=== PATIENT | female | born 1990 | race Caucasian/White ===

== ENCOUNTER 2017-04-29 05:47 | Inpatient (IN) | payer OTHER ==
[~2017-04-29] VITALS: Ht 165.1 cm; Wt 72.0 kg
[~2017-04-29 05:47] MED LIST: MTR/400 PO
[2017-04-29] MEDS ORDERED: PRENTAB26 PO (06:08)
[2017-04-29 06:09] VITALS: Ht 165.1 cm; Wt 72.0 kg
[2017-04-29] MEDS ORDERED: LACTATED RINGER'S 1000ML 1,000 ML IV SCH (06:33)
--- NOTE | 2017-04-29 06:44 | Progress Note ---
Progress Note Date of Service Apr 29, 2017. Progress Note Admit Note 26 F P0000 at 40.2 admitted in active labor with cervix 4-5 cm. GBS is negative. FHT Cat 1. Will admit in labor. anticipate normal delivery.
[2017-04-29 07:03] LABS: HEMATOCRIT 38.1 % (37-47); MEAN CELL VOLUME 90.5 fL (80-100); MEAN CORPUSCULAR HEMOGLOBIN 30.6 pg (25-34); MEAN CORPUSCULAR HGB CONC 33.9 g/dl (32-36); MEAN PLATELET VOLUME 10.6 fL (7.4-10.4); PLATELET COUNT 161 K/uL (130-400); RED BLOOD COUNT 4.21 M/uL (4.2-5.4); WHITE BLOOD COUNT 10.61 K/uL (4.8-10.8)
[2017-04-29] MEDS ORDERED: OXYTOCIN 30 UNITS/500ML NSS IV ONE (17:09)
[2017-04-29] MEDS ORDERED: ACETAMINOPHEN 325 MG TAB PO PRN (19:15)
[2017-04-29] MEDS ORDERED: HYDROCORTISONE ACETATE 25 MG SUPP PR PRN (19:15)
[2017-04-29] MEDS ORDERED: OXYCODONE/ACETAMINOPHEN 5-325 TAB PO PRN (19:15)
[2017-04-29] MEDS ORDERED: DIPHTHERIA/TETANUS/PERTUSSIS 0.5 ML SYR/VIAL IM. ONE (19:15)
[2017-04-29] MEDS ORDERED: OXYTOCIN 30 UNITS/500ML NSS IV PRN (19:15)
[2017-04-29] MEDS ORDERED: LANOLIN OINT EXT PRN ×2 (19:15)
[2017-04-29] MEDS ORDERED: SUPERCREAM 0.870 % 15GM JAR EXT PRN (19:15)
[2017-04-29] MEDS ORDERED: ACETAMINOPHEN/CODEINE 300/30MG TAB PO PRN ×2 (19:15)
--- NOTE | 2017-04-29 19:32 | DELIVERY SUMMARY ---
DATE OF OPERATION: 04/29/2017 TIME OF DELIVERY: 1821 DELIVERY OF PLACENTA: 182 DELIVERY NOTE: The patient is a 26-year-old 1 para 0 at 40 weeks and 2 days gestation who was admitted to labor and delivery on the morning of April 29, 2017, in active labor. She did not receive an epidural for anesthesia and she progressed spontaneously on her own. She reached complete dilation with the urge to push. She pushed to delivery at 1822. She delivered a viable female infant in the right occiput anterior position to an intact perineum. The baby was delivered and placed on the patient's abdomen. Cord was clamped x2 and cut. Apgars were 8 at 1 minute and 9 at 5 minutes. Please see nursing notes for further baby assessment. Cord blood was then obtained and an intact placenta with a 3-vessel cord was delivered manually at 1824. Oxytocin infusion was then began. The lower uterine segment and vagina was cleared of any blood clots and debris. Exploration of the perineum noted bilateral periurethral lacerations and a first degree vaginal laceration. All three were repaired with 3-0 and 4-0 Vicryl suture in a continuous running fashion. Excellent hemostasis was noted. No other lacerations were seen. All sponge, instrument and needle counts were found to be correct x2. Estimated blood loss was 300 cc. Both patient and baby tolerated the delivery well and were in recovery with stable vital signs. I attest to the content of the Intraoperative Record and any orders documented therein. Any exception s are noted below.
[2017-04-29] MEDS: DOCUSATE SODIUM 100 MG CAP PO SCH (20:05)
[2017-04-29] MEDS: IBUPROFEN 600 MG TAB PO PRN (20:05)
[2017-04-29 21:15] VITALS: BP 122/74; PULSE 100; TEMP 36.6
[2017-04-29] MEDS: BENZOCAINE 20% AER SPR 82.5 GM CAN EXT PRN (23:29)
[2017-04-30] VITALS: BP 107/69; PULSE 90; TEMP 36.6
[2017-04-30 03:45] VITALS: BP 101/59; PULSE 77; TEMP 36.7
[2017-04-30 08:22] LABS: HEMATOCRIT 35.3 % (37-47)
[2017-04-30 08:30] VITALS: BP 118/67; PULSE 90; TEMP 36.5; O2SAT 98
--- NOTE | 2017-04-30 09:13 | OB/GYN Progress Note ---
INSULATION CUPOLA CHARGER Progress Note Date of Service Apr 30, 2017. Subjective conversation w/ patient, physical exam Ambulation: ambulating normally Voiding: no voiding problems Passing Gas: Yes Diet Tolerance: Regular Diet Lochia: Small Feeding Type: Breast Feeding Objective Vital Signs Date Time Temp Pulse Resp B/P (MAP) Pulse Ox O2 Delivery O2 Flow Rate FiO2 04/30/17 03:45 36.7 77 20 101/59 (73) 04/30/17 00:00 Room Air 04/30/17 00:00 36.6 90 18 107/69 (82) 04/29/17 21:15 Room Air 04/29/17 21:15 36.6 100 20 122/74 (90) Room Air Physical Exam General Appearance: WD/WN, NO APPARENT DISTRESS Abdomen: non tender, soft Fundus: Firm Incision Description: Clean, Dry & Intact Laboratory Results Last 24 Hours Test 04/30/17 07:44 Hemoglobin 11.9 g/dL Hematocrit 35.3 % Assessment and Plan Post- Day Number: 1 Continue Routine Care: tent d/c in AM
[2017-04-30] MEDS: FERROUS SULFATE 325 MG TAB PO SCH (09:51)
[2017-04-30] MEDS: PRENATAL VITAMIN TAB PO SCH (09:51)
[2017-04-30] MEDS: DOCUSATE SODIUM 100 MG CAP PO SCH ×2 (09:51→20:34)
[2017-04-30 11:30] VITALS: BP 106/73; PULSE 88; TEMP 36.6; O2SAT 100
[2017-04-30] MEDS: IBUPROFEN 600 MG TAB PO PRN ×3 (11:30→20:35)
[2017-04-30 15:30] VITALS: BP 102/68; PULSE 80; TEMP 36.9
[2017-04-30] MEDS ORDERED: BISACODYL 5 MG TABEC PO SCH (20:00)
[2017-05-01 00:05] VITALS: BP 109/70; PULSE 71; TEMP 36.5
[2017-05-01] MEDS ORDERED: BISACODYL 10 MG SUPP PR PRN (07:00)
--- NOTE | 2017-05-01 07:00 | OB/GYN Progress Note ---
TALENT DEVELOPMENT MANAGER Progress Note Date of Service May 01, 2017. Subjective conversation w/ patient, physical exam Ambulation: ambulating normally Voiding: no voiding problems Passing Gas: Yes Diet Tolerance: Regular Diet Lochia: Moderate Feeding Type: Breast Feeding Review of Systems Constitutional: No fever, No chills, No sweats, No weight loss, No weakness, No fatigue, No problem reported Respiratory: No cough, No sputum, No wheezing, No shortness of breath, No dyspnea on exertion, No dyspnea at rest, No hemoptysis, No problem reported Cardiac: No chest pain, No orthopnea, No PND, No edema, No claudication, No palpitations, No problem reported Breast: No see HPI, No breast lump, No change in shape, No nipple discharge, No breast pain, No problem reported Abdomen: No pain, No nausea, No vomiting, No diarrhea, No constipation, No GI bleeding, No problem reported Female : No see HPI, No dysuria, No urinary frequency, No hematuria, No incontinence, No abnormal vaginal bleeding, No vaginal discharge, No problem reported Objective Vital Signs Date Time Temp Pulse Resp B/P (MAP) Pulse Ox O2 Delivery O2 Flow Rate FiO2 05/01/17 00:05 Room Air 05/01/17 00:05 36.5 71 18 109/70 (83) Room Air 04/30/17 15:30 36.9 80 18 102/68 (79) Room Air 04/30/17 15:30 Room Air 04/30/17 11:30 36.6 88 18 106/73 (84) 100 Room Air 04/30/17 08:30 98 Room Air 04/30/17 08:30 36.5 90 18 118/67 (84) 98 Physical Exam General Appearance: WELL-APPEARING, WD/WN, NO APPARENT DISTRESS, uncomfortable Respiratory/Chest: chest non-tender, lungs clear, normal breath sounds, no respiratory distress, no accessory muscle use Cardiovascular: regular rate, rhythm, no edema, no gallop, no JVD, no murmur Abdomen: normal bowel sounds, non tender, soft, no organomegaly, no pulsatile mass Fundus: Firm Incision Description: Clean, Dry & Intact Extremities: normal range of motion, non-tender, normal inspection, no pedal edema, no calf tenderness Laboratory Results Last 24 Hours Test 04/30/17 07:44 05/01/17 06:38 Hemoglobin 11.9 g/dL Hematocrit 35.3 % Assessment and Plan Post- Day Number: 2 Continue Routine Care: PPD #2 pt doing well D/c home with instructions
[2017-05-01] MEDS ORDERED: MTR600X PO (07:01)
--- NOTE | 2017-05-01 07:02 | Discharge Instructions ---
Discharge Instructions Date of Service May 01, 2017. Admission Reason for Admission: Term In Labor Discharge Discharge Diagnosis / Problem: Discharge Goals Goal(s): Routine recovery after delivery Activity Recommendations Activity Limitations: resume your previous activity . Instructions / Follow-Up Instructions / Follow-Up ACTIVITY RECOMMENDATIONS: * Gradual return to full activity over the next 2-3 weeks. * No lifting - nothing heavier than baby over the next 2-3 weeks. * Do not engage in vigorous exercise, sexual activity or sports until cleared by your physician. * Do not drive or operate any motorized equipment until cleared by your physician. * You may shower/bathe daily. BREAST CARE: If you are not breast feeding: * Wear a supportive bra 24 hours a day for one to two weeks. * Avoid stimulating your breasts and nipples as much as possible during the first few weeks after delivery. * When taking a shower, have the warm water hit your back, not breasts. * When your breasts feel full, apply ice packs. Usually three to four times a day helps ease the discomfort. * Take a mild pain medication (Tylenol/Motrin) when you are uncomfortable. If breast feeding: * Use breast milk to lubricate nipples. Lansinoh cream may be used for sore nipples. You do not need to remove cream prior to breast feeding. If using a different brand of cream, check the label for directions regarding removal of cream prior to nursing. * Wear a supportive bra. * If having problems with breasts or breast feeding, call a neuropsychology medical consultant or your health care provider. EPISIOTOMY CARE: After delivery, if you have an episiotomy (stitches), the following steps will ease discomfort and aid healing. * For the first 24 hours after delivery, place ice packs next to your episiotomy to help reduce swelling. * After the first 24 hour-period, sitz baths, either portable or in the tub, are suggested. A shower with a shower arm sprayed over the episiotomy may be comforting. * Anjelica care should be done after each voiding and bowel movement. Squirt warm water from a plastic bottle over the perineum (region of the body between the anus and urinary opening) and pat dry. * Use Dermoplast to ease discomfort. Shake container. [place] directly over the episiotomy. * Place a Tucks on a clean sanitary pad next to your episiotomy. OVER THE COUNTER MEDICATION: * For discomfort or pain, you may use Acetaminophen (Tylenol), Ibuprofen (Advil ), or Naproxen (Aleve) following the package directions. * For constipation you may use Colace following the package directions. SPECIAL CARE INSTRUCTIONS: When you are discharged from the hospital, it is important for you to follow the instructions listed below: * During the first week at home, you should be able to care for yourself and your baby. In addition, the usual light household activities are encouraged. * Limit your activities to the way you feel. Do not try to clean the house or move furniture. Be sensible. * If you actively engage in sports and have done so up until the time of your delivery, you may resume these activities as soon as you feel able. This may take up to one month or even longer. Use good judgment. * Continue to take your vitamins for at least six weeks after the of your baby. * Your diet need not be limited unless you were on a special diet before your delivery. Breast-feeding mothers need around 2500 calories per day and at least 64-80 ounces of fluid per day (8 to 10 glasses). * You should eat foods from the four major food groups. Crash diets or fad diets are to be avoided. Eating lean meats, fresh fruits and vegetables, low-fat dairy products, high fiber foods and a regular exercise program, will help you get back to your pre- weight without putting your health at risk. * Constipation is sometimes a problem after delivery. Take a mild laxative as needed. If breast feeding, Milk of Magnesia is acceptable to use. You may use a suppository or Fleets enema if no episiotomy. * A daily shower or tub bath is suggested. Be sure to thoroughly and gently dry the perineum. * A bloody vaginal discharge will usually continue until around four weeks post . A small amount of bleeding may continue for as long as six weeks. Vaginal discharge changes from the bright red bleeding after delivery to pink then brownish and finally yellowish-pink before becoming white and disappearing. * Bleeding may increase with activity. Your first period may come in 4-8 weeks. If you are breast feeding, your period may be delayed even longer. * [place] (sex) can begin whenever both you and your partner feel comfortable and do not have any form of genital infection. It is recommended that you wait until after your return appointment and discuss with your physician. If you have questions, please talk to your health care practitioner. A condom should be used to prevent infection and . * Foreplay, gentle intercourse and lubrication is very important the first several times to prevent pain. A water-based lubricant such as K-Y jelly or Astroglide may be used. * Tampons may be used six weeks after delivery. * Douching should be avoided for 6 weeks after delivery. * If you have RH negative blood and your baby is RH positive, you will receive RHOGAM by injection prior to discharge. The nurse will give you a card to keep with you that has the date and place that you received RHOGAM after delivery. * During your care, you had a Rubella screen done to check for the presence of rubella antibodies in your blood. If your test was negative, you will receive a Rubella vaccine prior to discharge. This vaccine may cause a fever, soreness at the injection site and flu-like symptoms. If these symptoms persist, notify your health care practitioner. is not advised for three months after a Rubella vaccine. There is a higher chance of having a baby with defects if conceived within three months of getting the vaccine. * If you were discharged 24 hours from delivery or before 48 hours: Visiting nurses will come to your home 48 hours after discharge to assess you and your baby. The visiting nurse will meet with you while you are in the hospital to arrange a time and get directions to your home. * Verbalizes understanding of car seat law as reviewed with patient nursing. * Car Seat hand-out given and reviewed with patient by nursing. * Shaken baby information reviewed with patient by nursing. Call you doctor if: * Heavy bleeding (saturating several pads an hour) or passing clots the size of your fist. * A fever >101 degrees F (38.3 degrees C) on two occasions four hours apart and/or chills. * Unusual pain in the pelvic or vaginal areas. * "Baby Blues" lasting longer than two weeks. If you have any questions or concerns, call your health care practitioner at . FOLLOW-UP VISIT: * Please call the office at to schedule a 6 week examination. It is important you keep this appointment. * It is important for you to make arrangements for either yearly or twice yearly check-ups thereafter. Current Hospital Diet Patient's current hospital diet: Regular OB Diet Discharge Diet Recommended Diet: Regular Diet Pending Studies Studies pending at discharge: no Medical Emergencies . Who to Call and When: Medical Emergencies: If at any time you feel your situation is an emergency, please call 911 immediately. . Non-Emergent Contact Non-Emergency issues call your: Specialist . . "Provider Documentation" section prepared by Ethan Ramachandran. . VTE Core Measure Inpt VTE Proph given/why not?: Treatment not indicated
[2017-05-01 07:20] LABS: HEMATOCRIT 36.6 % (37-47); MEAN CORPUSCULAR HEMOGLOBIN 30.4 pg (25-34); MEAN CORPUSCULAR HGB CONC 33.1 g/dl (32-36); MEAN PLATELET VOLUME 10.2 fL (7.4-10.4); PLATELET COUNT 187 K/uL (130-400); RED BLOOD COUNT 3.98 M/uL (4.2-5.4); WHITE BLOOD COUNT 11.28 K/uL (4.8-10.8)
[2017-05-01] MEDS: DOCUSATE SODIUM 100 MG CAP PO SCH (07:52)
[2017-05-01] MEDS: PRENATAL VITAMIN TAB PO SCH (07:52)
[2017-05-01] MEDS: FERROUS SULFATE 325 MG TAB PO SCH (07:52)
[2017-05-01] MEDS: BENZOCAINE 20% AER SPR 82.5 GM CAN EXT PRN (07:52)
[2017-05-01 08:19] VITALS: BP 109/74; PULSE 79; TEMP 36.7
[2017-05-01 12:58] VITALS: BP_DIAS 74; PULSE 79; TEMP 36.7
== END 2017-05-01 13:15 | disposition home or self-care (01) | DRG 775 ==
LOC: C.OPB 05:47 → C.LD 05:50 → C.OPB 06:42 → C.OBG 21:21
PROVIDERS: ADMIT Obstetrics & Gynecology; ATTEND Obstetrics & Gynecology
PROC: 0UQMXZZ Repair Vulva, External Approach (ICD-10-PCS; principal; 2017-04-29)
PROC: 0HQ9XZZ Repair Perineum Skin, External Approach (ICD-10-PCS; principal; 2017-04-29)
PROC: 10E0XZZ Delivery of Products of Conception, External Approach (ICD-10-PCS; principal; 2017-04-29)
DX: O48.0 Post-term pregnancy (principal); O70.0 First degree perineal laceration during delivery; O71.82 Other specified trauma to perineum and vulva; Z37.0 Single live birth; Z3A.40 40 weeks gestation of pregnancy

== ENCOUNTER 2019-06-26 03:41 | Inpatient (IN) ==
[2019-06-26] MEDS ORDERED: OXYTOCIN 30 UNITS/500 ML BAG IV PRN ×2 (04:16→05:39)
[2019-06-26] MEDS ORDERED: LACTATED RINGER'S 1,000 ML IV PRN (04:16)
--- NOTE | 2019-06-26 04:40 | History & Physical Report ---
Date of Service June 26, 2019 Assessment & Plan (1) Uterine contractions at greater than 20 weeks of gestation: 29 yo at 40.2 wks, in active labor FHR reassuring GBS negative No medical problems Plan to admit, monitor, labs anticipate History of Present Illness Chief Complaint: Contractions Primary Care Provider: Theodore Jimenez MD Patient is a 29 yo at 40.2 wks, who started to feel cts around 9 pm last night and got closer and more painful after 1 am No LOF/VB +FM Her has been uncomplicated GBS negative She is found to be 8 cm and desires AROM, but declines Epidural for pain Allergies Allergy/AdvReac Type Severity Reaction Status Date / Time No Known Allergies Allergy Unverified 01/16/16 10:33 Home Medications Home Medications Medication Instructions Recorded Confirmed Type PNV cmb#[id number]-ferrous fumarate-FA 1 tab PO DAILY 06/26/19 06/26/19 History [] Patient History Social History Preferred Language: Bermudian Gasket Maker Required: No Beliefs That Will Affect Care: None marital status: Current Living Situation: Family Other Information That Helps Us Care for You: No Feels Safe at Home: Yes Safety Concerns: Feels Safe At This Time Smoking Status: Never smoker Hx Alcohol Use: No Hx Substance Use: No OB History FT , 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
[2019-06-26 04:43] LABS: Hematocrit (blood only) 42.3 % (37-47); Hemoglobin 14.8 g/dL (12.0-16.0); Mean Corpuscular Hemoglobin 33.6 pg (25-34); Mean Corpuscular Volume 95.9 fL (80-100); Mean Platelet Volume 11.4 fL (7.4-10.4); Platelet Count 148 K/uL (130-400); RDW Coefficient of Variation 12.9 % (11.5-14.5); RDW Standard Deviation 44.2 fL (36.4-46.3); Red Blood Count 4.41 M/uL (4.2-5.4); White Blood Count 10.72 K/uL (4.8-10.8)
[2019-06-26] MEDS ORDERED: bisacodyL 10 MG SUPP PR PRN (05:39)
[2019-06-26] MEDS ORDERED: IBUPROFEN 600 MG TAB PO PRN (05:39)
[2019-06-26] MEDS ORDERED: HYDROCORTISONE ACETATE 25 MG SUPP PR PRN (05:39)
[2019-06-26] MEDS ORDERED: MEASLES, MUMPS & RUBELLA VIRUS VIAL SQ ONE (05:39)
[2019-06-26] MEDS ORDERED: OXYCODONE/ACETAMINOPHEN 5mg/325mg TAB PO PRN (05:39)
[2019-06-26] MEDS ORDERED: DIPHTHERIA/TETANUS/PERTUSSIS 0.5 ML SYR/VIAL IM ONE (05:39)
[2019-06-26] MEDS ORDERED: SUPERCREAM 0.870% 15 GM JAR EXT PRN (05:39)
[2019-06-26] MEDS ORDERED: OXYTOCIN 20 UNITS in LACTATED RINGER'S 1,000 ML IV SCH (08:15)
[2019-06-26] MEDS: PRENATAL VITAMIN 1 TAB PO SCH (08:37)
[2019-06-26] MEDS: DOCUSATE SODIUM 100 MG CAP PO SCH ×2 (08:37→20:51)
[2019-06-26] MEDS: BENZOCAINE 20% AER SPR 82.5 GM CAN EXT PRN (09:14)
[2019-06-26] MEDS ORDERED: METHYLERGONOVINE MALEATE 0.2 MG/ML AMP ONE (09:35)
--- NOTE | 2019-06-26 09:52 | Delivery Summary ---
DATE OF OPERATION: 06/26/2019 DATE OF DELIVERY: 06/26/2019 TIME OF DELIVERY OF BABY: 04:57 a.m. TIME OF DELIVERY OF PLACENTA: 05:14 a.m. DETAILS OF DELIVERY: The patient was found to be fully dilated and desired to push. She pushed for only 3 contractions and delivered the head without difficulty. Shoulders were delivered with minimal traction. Baby was handed off to the mother where mouth and nose were suctioned. Cord was clamped x2 and cut 1 minute delay. It was 3 vessels cord. Then the vagina and perineum were checked for lacerations. There was a second-degree small perineal laceration and a first degree left labial. Vaginal laceration was repaired with 0 Vicryl in a running fashion and then the labial laceration with 3-0 Vicryl and SH needle. Excellent hemostasis was achieved. The placenta was found to be in the vagina, delivered spontaneous as intact and complete. Uterus was explored, found to be empty. Lower segment was cleared of all clots and debris. Fundus was firm. EBL was 400 mL. Mom and baby tolerated the procedure well. Baby was a viable female infant, Apgars 9/9. No complications happened and I was present during whole procedure. I attest to the content of the Intraoperative Record and any orders documented therein. Any exceptions are noted below. DAMEOND
--- NOTE | 2019-06-26 09:53 | Progress Note ---
Date of Service June 26, 2019 Subjective OB Note Pt is s/p Vd this AM. Had one episode of syncope after delivery IVH with Pitocin was started and vitals stable mild bleeding uterus firm, Under umbilicus Nurse reports, pt passed a 'grape fruit size " clot. no gumaro bleeding Uterus remains firma and pt is able to ambulate to bathroom without any syncope she remains awake and alert plan continue IVH with Pitocin Methergine IM given STAT H/H will continue to monitor pt with vitals Results & Data Vital Signs (Past 12 Hours) Vital Signs Temp Pulse Resp BP 06/26/19 09:16 112 H 120/69 06/26/19 08:56 106 H 130/77 06/26/19 08:06 36.6 C 85 18 134/67 06/26/19 07:53 100 H 106/67 06/26/19 07:47 99 H 116/74 06/26/19 07:32 88 109/67 06/26/19 07:22 84 112/66 06/26/19 07:17 36.4 C L 75 18 86/54 L 06/26/19 07:02 122 H 118/58 L 06/26/19 06:47 90 18 117/69 06/26/19 06:32 82 111/63 06/26/19 06:17 91 H 18 111/63 06/26/19 06:02 86 18 118/68 06/26/19 05:47 80 18 114/68 06/26/19 05:32 83 18 132/82 06/26/19 05:17 108 H 18 125/73 06/26/19 04:08 93 H 130/72 06/26/19 04:02 86 142/78 H 06/26/19 04:01 36.7 C 107 H 18 131/101 H
[2019-06-26 11:05] LABS: Hematocrit (blood only) 34.2 % (37-47)
[2019-06-26] MEDS: ACETAMINOPHEN 325 MG TAB PO PRN (20:51)
[2019-06-27 06:43] LABS: Hematocrit (blood only) 30.5 % (37-47); Hemoglobin 10.3 g/dL (12.0-16.0); Mean Corpuscular Hemoglobin 33.1 pg (25-34); Mean Corpuscular Hgb Conc 33.8 g/dL (32-36); Mean Corpuscular Volume 98.1 fL (80-100); Mean Platelet Volume 10.9 fL (7.4-10.4); Platelet Count 126 K/uL (130-400); RDW Coefficient of Variation 13.6 % (11.5-14.5); RDW Standard Deviation 47.8 fL (36.4-46.3); Red Blood Count 3.11 M/uL (4.2-5.4); White Blood Count 7.35 K/uL (4.8-10.8)
--- NOTE | 2019-06-27 07:44 | Obstetrical Progress Note ---
Date of Service June 27, 2019 Subjective Patient is seen and examined. She feels well, no complaints. Ambulating without dizziness Voiding without difficulty Tolerating regular diet with out N&V Bleeding is minimal No fever/ chills/ CP/ SOB/ N&V/ Leg pain Breast feeding without problems Vital Signs Temp Pulse Resp BP Pulse Ox 06/27/19 04:45 36.9 C 88 16 103/68 98 06/26/19 23:40 36.7 C 82 17 101/65 98 06/26/19 20:45 36.6 C 89 16 111/68 98 Lab Results 06/26/19 06/26/19 06/27/19 Range/Units 04:34 10:54 06:25 WBC 10.72 7.35 (4.8-10.8) K/uL RBC 4.41 3.11 L (4.2-5.4) M/uL Hgb 14.8 12.0 10.3 L (12.0-16.0) g/dL Hct 42.3 34.2 L 30.5 L (37-47) % MCV 95.9 98.1 (80-100) fL MCH 33.6 33.1 (25-34) pg MCHC 35.0 33.8 (32-36) g/dL RDW Std Deviation 44.2 47.8 H (36.4-46.3) fL RDW Coeff of Zina 12.9 13.6 (11.5-14.5) % Plt Count 148 126 L (130-400) K/uL MPV 11.4 H 10.9 H (7.4-10.4) fL PE: General: Alert, orientedx3, NAD Abd: soft, NT, fundus firm, below Umbilicus Perineum intact, Lochia rubra minimal Ext; NT, no edema AP: [] yo s/p , ppd# [] VSS Afebrile doing well Continue routine care CMP All questions were answered Results & Data Vital Signs (Past 12 Hours) Vital Signs Temp Pulse Resp BP Pulse Ox 06/27/19 04:45 36.9 C 88 16 103/68 98 06/26/19 23:40 36.7 C 82 17 101/65 98 06/26/19 20:45 36.6 C 89 16 111/68 98
[2019-06-27] MEDS: DOCUSATE SODIUM 100 MG CAP PO SCH ×2 (08:13→20:28)
[2019-06-27] MEDS: PRENATAL VITAMIN 1 TAB PO SCH (08:13)
[2019-06-27 08:37] LABS: Albumin Level 2.5 gm/dl (3.4-5.0); BUN Creatinine Ratio 13.7 (10-20); Calcium 8.6 mg/dl (8.5-10.1); Creatinine Clr Calc Pharmacy 138.8 ml/min; Est GFR (African American) 143.6; Est GFR (Non-African American) 123.9; Potassium 3.7 mmol/L (3.5-5.1)
[2019-06-27 08:40] LABS: Albumin Globulin Ratio 0.8 (0.9-2); Bilirubin,Total 0.3 mg/dl (0.2-1); Globulin 3.1 gm/dl (2.5-4.0); Total Protein 5.6 gm/dl (6.4-8.2)
[2019-06-27] MEDS: METHYLERGONOVINE MALEATE 0.2 MG TAB PO SCH ×4 (10:21→19:21)
[2019-06-27] MEDS: ACETAMINOPHEN 325 MG TAB PO PRN ×2 (15:34→23:42)
[2019-06-27] MEDS ORDERED: bisacodyL 5 MG TABEC PO SCH (20:00)
[2019-06-28 07:20] LABS: Hematocrit (blood only) 29.4 % (37-47); Hemoglobin 9.9 g/dL (12.0-16.0)
[2019-06-28] MEDS: PRENATAL VITAMIN 1 TAB PO SCH (07:41)
[2019-06-28] MEDS: DOCUSATE SODIUM 100 MG CAP PO SCH (07:41)
[2019-06-28] MEDS: METHYLERGONOVINE MALEATE 0.2 MG TAB PO SCH (07:55)
--- NOTE | 2019-06-28 08:05 | Obstetrical Progress Note ---
Date of Service June 28, 2019 Physical Exam Physical Exam: abdomen soft and non tender vaginal bleeding scant to moderate hg 9.9 no calf tenderness ambulating well Results & Data Vital Signs (Past 12 Hours) Vital Signs Temp Pulse Resp BP Pulse Ox 06/27/19 23:45 36.6 C 89 16 111/68 98
[2019-06-28] MEDS: BENZOCAINE 20% AER SPR 82.5 GM CAN EXT PRN (10:05)
== END 2019-06-28 10:35 | disposition home or self-care (01) | DRG 807 ==
LOC: OPB 03:41 → 4S1 03:47 → 4S2 10:25